=== PATIENT | female | born 1980 | race Caucasian/White ===

== ENCOUNTER 2016-07-01 08:51 | Emergency (ER) | payer OTHER ==
[2016-07-01 10:14] LABS: HEMOGLOBIN 13.1 gm/dl (12.3-15.3); RED BLOOD COUNT 4.16 M/UL (4.00-5.10); WHITE BLOOD COUNT 8.2 K/UL (4.5-11.0)
[2016-07-01 10:31] LABS: BUN/CREATININE RATIO 19 (0-10)
== END 2016-07-01 13:08 | disposition home or self-care (01) ==
LOC: ER1 08:51
PROVIDERS: Emergency Medicine
DX: S33.5XXA Sprain of ligaments of lumbar spine, initial encounter (principal); S13.4XXA Sprain of ligaments of cervical spine, initial encounter; S09.90XA Unspecified injury of head, initial encounter; S39.91XA Unspecified injury of abdomen, initial encounter; V43.52XA Car driver injured in collision with other type car in traffic accident, initial encounter; Y92.410 Unspecified street and highway as the place of occurrence of the external cause
CPT/HCPCS: 36415; 70450; 71260; 72070; 72100; 72125; 73030; 80053; 81001; 84703; 85025; 96360; 99284; J7030; J7050; Q9962

== ENCOUNTER → 2016-07-13 | Outpatient (CLI) | payer OTHER | LOC: EMI 07:30 | DX: S12.400A Unspecified displaced fracture of fifth cervical vertebra, initial encounter for closed fracture (principal); M54.2 Cervicalgia; M48.02 Spinal stenosis, cervical region; M43.12 Spondylolisthesis, cervical region; M50.221 Other cervical disc displacement at C4-C5 level; E04.2 Nontoxic multinodular goiter | CPT/HCPCS: 72141 ==

== ENCOUNTER → 2016-07-20 | Outpatient (CLI) | payer BC, OTHER | LOC: US 15:22 | DX: E04.1 Nontoxic single thyroid nodule (principal) | CPT/HCPCS: 76536 ==

== ENCOUNTER → 2020-11-03 | Outpatient (CLI) | payer BC ==
[~2020-11-03] MED LIST: ASPIRIN EC81 MG PO; BENLYSTA 400 M400 MG IV; BENTYL 20MG TAB20 MG PO; DOCUSATE SODIU250 MG PO; HYDROCODONE-AC1 EACH PO; IBUPROFEN600 MG PO; PLAQUENIL 200200 MG PO; VALSARTAN80 MG PO; ZOLOFT25 MG PO; ZYRTEC10 M3 PO
[2020-11-03 09:35] LABS: HEMOGLOBIN 10.6 gm/dl (12.3-15.3); RED BLOOD COUNT 3.63 M/UL (4.00-5.10); WHITE BLOOD COUNT 5.3 K/UL (4.5-11.0)
[2020-11-03 10:02] LABS: BUN/CREATININE RATIO 23 (0-10)
== END ==
LOC: OPSV2 08:00
PROVIDERS: Obstetrics & Gynecology
DX: Z01.812 Encounter for preprocedural laboratory examination (principal); N92.0 Excessive and frequent menstruation with regular cycle
CPT/HCPCS: 36415; 80053; 81001; 85025

== ENCOUNTER → 2020-11-09 | Day surgery (SDC) | payer BC | END | disposition home or self-care (01) | LOC: OR 07:30 | DX: D25.1 Intramural leiomyoma of uterus (principal); N88.8 Other specified noninflammatory disorders of cervix uteri; N80.0 Endometriosis of uterus; B67.99 Other echinococcosis; N92.0 Excessive and frequent menstruation with regular cycle; E66.9 Obesity, unspecified; N94.6 Dysmenorrhea, unspecified; I10 Essential (primary) hypertension; K82.9 Disease of gallbladder, unspecified; M19.90 Unspecified osteoarthritis, unspecified site; E07.9 Disorder of thyroid, unspecified; D64.9 Anemia, unspecified; F41.9 Anxiety disorder, unspecified; M32.9 Systemic lupus erythematosus, unspecified; K21.9 Gastro-esophageal reflux disease without esophagitis; Z68.36 Body mass index [BMI] 36.0-36.9, adult; Z88.8 Allergy status to other drugs, medicaments and biological substances; Z20.822 Contact with and (suspected) exposure to COVID-19; Z90.49 Acquired absence of other specified parts of digestive tract | CPT/HCPCS: 36415; 84702; 93005; C1769; J0690; J1100; J1170; J1885; J2001; J2250; J2405; J2704; J2710; J3010; J7120 ==

== ENCOUNTER → 2021-05-14 | Outpatient (CLI) | payer BC | LOC: EXRD 08:21 | DX: R06.02 Shortness of breath (principal) | CPT/HCPCS: 71046 ==

== ENCOUNTER 2021-05-25 12:52 | Emergency (ER) | payer BC ==
[2021-05-25 13:54] LABS: HEMOGLOBIN 12.7 gm/dl (12.3-15.3); RED BLOOD COUNT 4.25 M/UL (4.00-5.10); WHITE BLOOD COUNT 7.8 K/UL (4.5-11.0)
[2021-05-25 14:14] LABS: BUN/CREATININE RATIO 24 (0-10)
[2021-05-25] MEDS ORDERED: ZOFRAN ODT 4 MG4 MG SL (17:18)
== END 2021-05-25 17:34 | disposition home or self-care (01) ==
LOC: ER1 12:52
PROVIDERS: Physician Assistant Medical
DX: E86.0 Dehydration (principal); R07.89 Other chest pain; I10 Essential (primary) hypertension; Z90.710 Acquired absence of both cervix and uterus; Z79.82 Long term (current) use of aspirin
CPT/HCPCS: 71045; 80053; 81001; 82550; 82553; 83874; 83880; 84484; 84703; 85025; 85379; 93005; 99285

== ENCOUNTER → 2021-07-13 | Outpatient (CLI) | payer BC ==
[~2021-07-13] MED LIST changes: +ZOFRAN ODT 4 MG4 MG SL
== END ==
LOC: KOH-I 16:32
DX: M54.16 Radiculopathy, lumbar region (principal); M25.551 Pain in right hip; M25.552 Pain in left hip; R31.9 Hematuria, unspecified; M16.0 Bilateral primary osteoarthritis of hip
CPT/HCPCS: 72100; 73522; 74018

== ENCOUNTER → 2021-08-05 | Outpatient (CLI) | payer BC | LOC: HEART 5 09:30 | DX: R06.02 Shortness of breath (principal) | CPT/HCPCS: 94010 ==